=== PATIENT | male | born 1960 | race Caucasian/White ===

== ENCOUNTER 2025-08-26 09:16 | Outpatient (AMB) | payer OTHER, SELFPAY ==
--- NOTE | 2025-08-26 09:19 | MHC.OFFVIS ---
Vital Signs 08/26/25 09:22 Height 5 ft 8 in Weight 195 lb BMI 29.6 BP 171/76 H Blood Pressure Location Lt brachial Position Sitting Respiration 16 Pulse 81 Pulse Source Pulse Oximeter Pulse Oximetry (%) 97 Oxygen Delivery Method Room Air Intake Visit Reasons: Chronic Left Sided Low Back Pain Assistant Financial Accountant Required: No Allergies No Known Allergies Allergy (Verified 08/26/25 09:23) Medication List - Last Reconciled 08/26/25 by ARLETH Myrick-cob-emtri-tenof alafen [phone] mg (Genvoya) 1 tab PO DAILY fenofibrate 160 mg PO DAILY hydrochlorothiazide 12.5 mg PO DAILY ipratropium bromide 2.5 mL inhalation Q6H PRN levothyroxine 25 mcg PO DAILY metformin 500 mg PO DAILY metoprolol succinate ER 50 mg PO DAILY rosuvastatin 10 mg PO DAILY HPI HPI Chronic Left Sided Low Back Pain: Details: History of Present Illness The patient is a 65 year old individual presenting with chronic left lower back pain with a history of previous back surgery. The current episode of pain started suddenly on March 28 while making a bed, and by March 31, the patient was unable to walk. The pain is described as an aching, numbing, and stabbing sensation, rated 7 to 8 out of 10 in intensity, located in the left buttock and hip, starting in the lower back and radiating down the left calf to the bottom of the foot and big toe. The patient sometimes experiences rectal pain as well. For the current symptoms, the patient has been seeing a chiropractor faithfully since March without improvement and notes that massage therapy provides only minimal relief. The patient has been prescribed 5 mg of cyclobenzaprine, which helps with sleep but does not resolve the pain upon waking. The patient's medical history is notable for two prior back surgeries, one in 1988 and another in 2003. A previous MRI, performed sometime between 2006 and 2008, revealed four herniated discs. The patient also has a history of HIV infection, managed with antiretroviral therapy since approximately 2005, and has an undetectable viral load with no problems with wound healing. Pain Description - Onset and Timing: The pain began suddenly on March 28 while making a bed. - Quality and Character: The patient describes the pain as aching, numbing, and stabbing, and sometimes as a rectal pain or a sensation of something being jammed in the buttock. - Location and Radiation: The pain starts in the lower back, moves to the left buttock and hip, and then radiates down the left calf to the bottom of the foot and the big toe. - Severity: The pain intensity is rated as 7 to 8 out of 10. - Exacerbating Factors: Lying on the back or the left side worsens the pain. - Interference with Function: The pain has interfered with the ability to walk and sleep, and would likely prevent full participation in physical therapy. - Relieving Factors: Massage therapy provides a small amount of relief. Physical Exam - Motor: Subjective weakness of the left foot is noted when attempting to stand on toes. - Motor: Performing a single-leg toe stand is much easier on the right than on the left. - Motor: The patient is unable to stand on the left heel due to pain and weakness. - Neurologic: Straight leg raise is positive on the left side. Results - Imaging: The most recent MRI, from approximately 8081-9028, showed four herniated discs. - Labs: HIV viral load is undetectable. Pain Management - Affect: Pain is interfering with sleep. - Analgesia: Current pain level is 7-8/10. - Analgesia: The patient is prescribed cyclobenzaprine 5 mg, which induces sleep but does not provide adequate pain relief upon waking. - Analgesia: Gabapentin was offered as an alternative for nighttime use, and the patient may also take Tylenol. - Adverse Effects: Cyclobenzaprine causes sleepiness, and the patient cannot take medications that cause daytime drowsiness due to the patient's occupation. - Activities of Daily Living: The pain impairs walking and sleep, and is expected to limit participation in physical therapy. - Aberrant Drug Related Behaviors: None discussed. 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 1. Chronic Low Back Pain With Left Sciatica - The patient's presentation of [id number]-[id number] low back pain with radicular symptoms and positive physical exam findings (left-sided weakness, positive straight leg raise) suggests lumbosacral nerve root irritation, especially given the history of multiple herniated discs. - An MRI of the lumbar spine without contrast will be ordered to further investigate the lumbar neuroanatomy. - Gabapentin was offered for nighttime use to manage neuropathic pain and aid with sleep, as an alternative to cyclobenzaprine. - The patient will continue with neonatal critical care nurse and attempt physical therapy as tolerated, though it is noted that pain may limit participation. - Follow-up will be scheduled after the MRI to discuss the results and consider further options, such as injections. 2. Hiv Infection - The patient's HIV is stable and well-controlled with an undetectable viral load on antiretroviral therapy. - No changes to the current management are required. Discussion Notes I discussed with the patient that the current symptoms, including radiating pain and weakness, are concerning for a nerve issue in the lower back, likely related to the known history of herniated discs. I recommended an MRI of the lumbar spine to get a clear picture of the anatomy and guide further treatment. We discussed the possibility that the insurance carrier may require a trial of physical therapy before approving the MRI, but I will note that the patient's current pain level limits the ability to fully participate. Regarding medications, I offered gabapentin as an option for nighttime use to help with nerve pain and sleep, acknowledging the patient's need to avoid sedating medications during the day due to their work. The patient can try gabapentin and decide if it is more helpful than the currently prescribed cyclobenzaprine. I instructed the patient to await a call from the MRI facility to schedule the scan and to then call my office to schedule a follow-up appointment a few days after the MRI date. I advised the patient to contact my office if no call is received from the MRI facility within a couple of weeks, and also mentioned that the patient could proactively contact the insurance company to check on the status of the authorization. Patient Instructions - An MRI of your lower back will be ordered. You will receive a phone call from the imaging facility to schedule your appointment. - If you do not receive a call to schedule your MRI within the next couple of weeks, please call our office. - Once you have a date for your MRI, please call our office to schedule a follow-up visit for a few days after that date so we can review the results together. - You can contact your insurance company (Pricing Assistant) in a few days to ask about the status of the MRI approval to help move the process along. - You can try taking gabapentin at night to help with your pain and sleep. You may choose to take this or your cyclobenzaprine, depending on which one helps you more. - Avoid taking any medications that make you drowsy during the day. - You may take Tylenol for pain if you are able to. Orders: Orders MR lumbar spine wo con Today G89.29 - Other chronic pain, M54.40 - Lumbago with sciatica, unspecified side Medications: New gabapentin 300 mg PO BEDTIME 30 caps 0RF Coding Level of Care Code New Pt Level 4 (47895) Diagnoses Chronic left-sided low back pain with sciatica M54.40; G89.29
[2025-08-26 09:22] VITALS: BP 171/76; PULSE 81; RESP 16; O2SAT 97; BMI 29.6
--- OUTSIDE RECORDS SUMMARY | 2025-08-26 10:57 | XMS_ITS | Encounter Summary ---
Author Organization [facility] Address [address] [place] [address] Care Team Providers Care Yarn Examiner Name Role Phone Owen Velazco MD Primary Care Provider [phone] Encounter Details Date Type Department Care Team ([facility] st Contact Info) Description 07/28/2025 Results Follow-Up Adult [address] [phone] Owen Velazco MD [address] [place] [address] Social History Tobacco Use Types Packs/Day Years Used Date Smoking Tobacco: Former Cigarettes 0 Q uit: 05/27/2010 Smokeless Tobacco: Never Alcohol Use Standard Drinks/Week Comments Yes 0 (1 standard drink = 0.6 oz pur e alcohol) Housing Instability Answer Date Recorde d Are you worried that in the next 2 months you may not have stable housing? No 09/23/2024 Food Access & Nutrition Answer Date Rec orded Do you have access to a vari ety of food including fruits and vegetables? Yes 09/23/2024 Access to Healthcare Answer Date Record ed Within the last 3 months, ho w many times did you visit the emergency department for your medical care? 0 09/23/2024 Health Literacy Answer Date Recorded How often do you need to hav e someone help you when you read instructions, pamphlets, or other written material from your doctor or pharmacy? Never 09/23/2024 Caregiver: How often do you need to have someone help you when you read instructions, pamphlets, or other written material from your doctor or pharmacy? Not on file 09/23/2024 Financial Risk Answer Date Recorded How hard is it for you to pa y for the very basics like food, housing, medical care, and air conditioning / heating? Not very hard 09/23/2024 Transportation Answer Date Recorded Has the lack of transportati on kept you from meetings, work, or from getting things needed for daily living? No Has the lack of transportati on kept you from medical appointments or from getting medications? No 09/23/2024 Social Isolation Answer Date Recorded How often do you feel lonely or isolated from th ose around you? Never 09/23/2024 Food Risk Answer Date Recorded Within the past 12 months we worried whether our food would run out before we got money to buy more. Never true 09/23/2024 Within the past 12 months th e food we bought just didn't last and we didn't have money to get more. Never true 09/23/2024 Dependent Care Answer Date Recorded Do you need help finding or paying for care for your loved ones. For example, teacher early childhood development or elderly care for an older adult? No 09/23/2024 Education Answer Date Recorded Do you think completing more education or training, like finishing a GED, going to college, or learning a trade, would be helpful for you? No 09/23/2024 Employment and Income Answer Date Recor ded During the last four weeks, have you been actively looking for work? No 09/23/2024 Living Situation Answer Date Recorded What is your living situation? Unrecognized valu e 09/23/2024 Sex and Gender Information Value Date Recorded Sex Assigned at Male 06/25/2024 10:18 AM EDT Legal Sex Male 1:37 AM EST Gender Identity Male 06/25/2024 10:18 AM EDT Sexual Orientation Lesbian or Hines 06/25/2024 10 :18 AM EDT documented as of this encounter Plan of Treatment Upcoming Encounters Date Type Department Care Team ([facility] st Contact Info) Description 08/29/2025 2:30 PM EST Evaluation Outpatient [address] [address] Matheus Franco, PT 09/30/2025 2:45 PM EST Office Visit Adult Medicine [facility] [address] [place] [address] Sonia Dumont PA [address] [place], [place] documented as of this encounter Visit Diagnoses Not on filedocumented in this encounter Additional Health Concerns Assessment Noted Time PHQ-9 Depression Total Score: 0 11/06/19 25 10:56 AM EST documented as of this encounter Care Teams Yarn Examiner Relationship Specialty Start Date End Date Owen Velazco MD [address] [place] [address] PCP - General Internal Medicine 05/03/22 documented as of this encounter
--- OUTSIDE RECORDS SUMMARY | 2025-08-26 10:57 | XMS_ITS | Encounter Summary ---
Author Organization [facility] Address [address] [place] [address] Care Team Providers Care Cloth Printing Inspector Name Role Phone Owen Velazco MD Primary Care Provider [phone]- [phone] Reason for Visit * Reason Onset Date Comments Back Pain 07/24/2025 Hip Pain 07/24/2025 Encounter Details Date Type Department Care Team ([facility] st Contact Info) Description 07/24/2025 Telephone Adult Medicine [address] [phone] Owen Velazco MD [address] [place] [address] Social History Tobacco Use Types Packs/Day Years [...] do you feel lonely or isolated from ose around you? Never 09/23/2024 Food Risk [...] care for your loved ones. For example, children teacher or elderly care for an older adult? [...] AM EDT documented as of this encounter Progress Notes * Muna Silver RN - 07/24/2025 3:35 PM EDT Pt. States he has already spoke to someone and has an apt. On Tuesday. He explains he has a hx of back pain and surgeries. In March he did something and has been having problems with since March. He has ton seeing his chiropractor x 4 months and they both decided it is time to talk to his PCP . The pain is left lower back, left hip , left buttock and can radiate down leg to foot. He denies numbness but sts at times his leg does feel weak. He denies need for ER visit at this time and is ok with his apt. On Tuesday. I advised to call the office prior to apt. With any concerns or questions and if worsening symptoms or weakness to be evaluated in the ER. Pt. Verbalized understanding * Jessica Mari - 07/24/2025 3:09 PM EDT Patient call requires triage: Symptoms patient is presenting: lower back pain, left side, hip pain, buttock pain to foot. Sees Chiro. Chiro said to call PCP. Numbness in leg. Pain in buttock, in anal area at times, very painful. Had surgery in 2003, Dr. Desai. Patient would like to get an MRI. He will be available after 4:15 today or in the morning. How long has patient had these symptoms?: March 28, per patient For ALL patients calling to schedule any appointment (routine, sick visit, follow up, consult, etc.) in the outpatient setting please ask the following questions: Do you have fever of higher than 101, sore throat with difficulty swallowing or severe shortness ofbreath? no If YES to any of these above symptoms, send a message to triage and do not book. Red dot. If no, an audio or video visit should be booked. Have you had close contact with someone with Coronavirus in the last 14 days? no Have you traveled abroad? no Have you traveled recently to another state outside of [place], [place], [place], [place], [place], [place], [place]? no o If yes, did you quarantine for 14 days or have a negative covid test? no If yes to any of the above, patient is not to be scheduled in office until after 14 day quarantine or negative covid test. If pain or injury related was it due to an accident at work or from a motor vehicle accident? If yes, date of accident/Injury: No If yes, gather 3rd constitution party insurance information Third [employer] Party Information: not applicable PCP: Owen Velazco MD Payor: [facility] / Plan: [employer] / Product Type: *No Product type* / documented in this encounter Plan of Treatment Upcoming Encounters Date Type Department Care Team (Late st Contact Info) Description 08/29/2025 2:30 PM EST Evaluation Outpatient Rehabilitation - [address] [phone] Matheus Franco PT 09/30/2025 2:45 PM EST Office Visit Adult Medicine [address] [phone] Sonia Dumont PA [address] [place] [address] documented as of this encounter Visit Diagnoses Not on filedocumented in this encounter Additional Health Concerns Assessment Noted Time PHQ-9 Depression Total Score: 0 11/06/19 25 10:56 AM EST documented as of this encounter Care Teams Cloth Printing Inspector Relationship Specialty Start Date End Date Owen Velazco MD [address] [place] [address] PCP - General Internal Medicine 05/03/22 documented as of this encounter
--- OUTSIDE RECORDS SUMMARY | 2025-08-26 10:57 | XMS_ITS | Clinical Summary ---
Author Organization [facility] [address] [place] [address] [address] [place] [address] Phone Care Team Providers Care Cnc Cutting Operator Name Role Phone Owen Velazco MD Primary Care Provider [phone] Allergies Active Allergy Reactions Criticality Noted Date Comments Lactose 08/07/2018 intolerant Medications elvitegravir-co bicistat-emtric itabine-tenofov ir alafenamide (Genvoya) [phone] mg per tablet Take by mouth. A ctive rosuvastatin calcium (ROSUVASTATIN ORAL) Take 10 mg by mouth 1 (one) time each day. Active hydroCHLOROthia zide (HYDRODIURIL) 25 mg tablet Take 1 tablet (25 mg total) by mouth 1 (one) time each day. 90 each 3 10/11/19 25 026 Active metFORMIN XR (GLUCOPHAGE-XR) 500 mg 24 hr tablet Take 1 tablet (500 mg total) by mouth 1 (one) time each day with breakfast. Do not crush, chew, or split. 90 each 2 02/08/20 25 026 Active fenofibrate (LOFIBRA) 160 mg tablet TAKE 1 TABLET BY MOUTH EVERY DAY 90 tablet 06/18/20 25 Active ipratropium (ATROVENT) 21 mcg (0.03 %) nasal spray Administer 2 sprays into each nostril 1 (one) time each day. 30 mL 2 07/26/20 25 Active levothyroxine (SYNTHROID, LEVOTHROID) 50 mcg tablet Take 1 tablet (50 mcg total) by mouth 1 (one) time each day. 90 each 1 07/26/20 25 026 Active cyclobenzaprine (FLEXERIL) 5 mg tablet Take 1 tablet (5 mg total) by mouth at bedtime as needed for muscle spasms. 30 tablet 1 07/26/20 25 Active metoprolol succinate (TOPROL-XL) 50 mg 24 hr tablet Take 1 tablet (50 mg total) by mouth 1 (one) time each day. 90 tablet 1 08/21/20 25 Active metoprolol succinate (TOPROL-XL) 50 mg 24 hr tablet TAKE 1 TABLET BY MOUTH EVERY DAY 90 tablet 05/13/20 25 025 Discontinu ed(Reorder ) predniSONE (DELTASONE) 20 mg tablet Take 2 tablets (40 mg total) by mouth See administration instructions for 3 days, THEN 1 tablet (20 mg total) See administration instructions for 4 days. 10 tablet 07/26/20 25 025 Active Problems Problem Noted Date Diagnosed Date Spondylosis of cervical dimple on without myelopathy or radiculopathy 11/21/2023 COVID-19 10/09/2021 Vitamin D deficiency 07/07/2021 Prediabetes 04/06/2021 Overview (08/14/2024): HBA1C 6.1 Assessment & Plan (11/13/2024 10:23 AM EST): All the patient has a history of prediabetes, his most recent hemoglobin A1c came back at 6.6%. This now meets criteria for type 2 diabetes. Discussed this with patient in detail. Discussed potential option to add metformin. Patient prefers to avoid any further medication at this time, and I explained to him that he will need to make very significant changes to his diet and exercise routine which she will work towards. If there is any persistent elevations, discussed with patient that we would consider initiating metformin. He is on rosuvastatin. He was previously on WILBUR inhibitor which he did not tolerate. Orders: Basic metabolic panel; Future Hemoglobin A1c; Future Thyroid stimulating hormone; Future Diverticulosis 04/06/2021 Overview (08/14/2024): CN 09/05/17 Varicose veins of lower extremity 08/07/2018 Mixed hyperlipidemia 08/07/2018 Human immunodeficiency virus (HIV) disease (CMS/HCC V24, CMS/HCC V28) 08/07/2018 HTN (hypertension) 08/07/2018 Assessment & Plan (10/12/2024 8:24 AM EST): His blood pressure has been uncontrolled. Previously, he was on HCTZ which was discontinued due to a single episode of hypercalcemia at 10.6. Pt felt HCTZ worked better for him than lisinopril. He has not had very good control since the switch. I talked about adding amlodipine. Pt prefers to restart HCTZ. We will stop the lisinopril. Follow up in 4 weeks with labs at that time. If still uncontrolled, next visit will add amlodipine. He is asked to monitor BP daily and message me with persistent elevations. Orders: Basic metabolic panel; Future Basic metabolic panel; Future Thyroid stimulating hormone; Future Thyroid stimulating hormone; Future Hemoglobin A1c; Future Hearing loss, right 08/07/2018 Childhood asthma 08/07/2018 Encounters Date Type Department Care Team Description 07/28/2025 Results Follow-Up Adult [address] [phone] Owen Velazco MD 07/26/2025 3:08 PM EDT - 07/26/2025 11:59 PM EDT Hospital Encounter SOLA Delgado [facility] [address] [place] [phone] Chronic left-sided low back pain with left-sided sciatica Discharge Disposition: Home or Self Care 07/26/2025 3:08 PM EDT - 07/26/2025 11:59 PM EDT Hospital Encounter LETARACHELE Delgado Eddy [address] [place] [phone] Primary osteoarthritis of left hip Discharge Disposition: Home or Self Care 07/26/2025 3:00 PM EDT Office Visit Adult [address] [phone] Owen Velazco MD Chronic left-sided low back pain with left-sided sciatica (Primary Dx); Primary osteoarthritis of left hip; Primary hypertension; Type 2 diabetes mellitus without complication, without long-term current use of insulin ([facility] [place], [facility] V28); Mixed hyperlipidemia; Chronic kidney disease (CKD), stage 2; Acquired hypothyroidism; Asymptomatic HIV infection, with no history of HIV-related illness ([facility] V24, [facility] V28) 07/24/2025 Telephone Adult Medicine [address] [phone] Owen Velazco MD from Last 3 Months Immunizations Immunization Administration Dates Next Due Hep A, Unspecified 10/10/2013 Hep B, Unspecified 10/10/2013 Hepatitis A-Hepatitis B Adul t (Twinrix) 18yo and older 04/04/2013,11/14/2012,08/29/2012 Influenza Quadravalent, MDCK , 0.5ml, preservative free (Flucelvax) 6mo and older 09/06/2022,06/17/2021 Influenza trivalent, 0.5mL, preservative free (Fluarix; FluLaval; Fluzone) ages 6mo and older (Afluria) 3 years and older 12/14/2017 Influenza trivalent, with pr eservative (Fluzone; Afluria) 6mo and older 07/04/2019 Pneumococcal conjugate 13 va lent (Prevnar 13, PCV13) 2mo and older 08/29/2012 Tb Skin Test 10/10/2013 Tdap Tetanus diptheria acell ular pertussis (Boostrix; Adacel) 7yo and older 02/09/2018,09/26/2010 Surgical History Surgery Date Site/Laterality Comments OTHER SURGICAL HISTORY Right PROCEDURE: HISTORICAL MASTOIDECTOMY BACK SURGERY PROCEDURE: HISTORICAL BACK SURGERY OTHER SURGICAL HISTORY PROCEDURE: SKIN EXCISION; COMMENT: resection forehead and scalp lesions COLONOSCOPY 09/05/2017 PROCEDURE: HISTORICAL COLONOSCOPY; COMMENT: one polyp in sigmoid colon, diverticulosis, internal hemorrhoids, repeat 5 years COLONOSCOPY 05/02/2012 PROCEDURE: HISTORICAL COLONOSCOPY; COMMENT: cecal polyp repeat 5 years Medical History Medical History Date Comments Human immunodeficiency virus (HIV) disease ([facility] [place], [facility] V28) 08/07/2018 DX:Human immunodefi ciency virus (HIV) disease ([facility]) Hyperlipidemia 08/07/2018 DX:Hyperlipidemi a HTN (hypertension) 08/07/2018 DX:HTN (hyper tension) CKD (chronic kidney disease) stage 3, GFR 30-59 ml/min ([facility] V24, [facility] V28) 08/07/2018 DX:CKD (chronic kidney disea se) stage 3, GFR 30-59 ml/min ([facility]) Hearing loss, right 08/07/2018 DX:Hearing l oss, right History of herpes zoster 08/07/2018 DX:Hist ory of herpes zoster; COMMENT: Right arm Childhood asthma 08/07/2018 DX:Childhood as thma Varicose veins of lower extremity 08/07/2018 DX:Varicose veins of lower extremity History of colon polyps 04/06/2021 DX:Histo ry of colon polyps; COMMENT: CN 09/05/17 Prediabetes 04/06/2021 DX:Prediabetes; COMMENT: HBA1C 6.1 Diverticulosis 04/06/2021 DX:Diverticulosi s; COMMENT: CN 09/05/17 Family History Medical History Relation Name Comments Diabetes Brother Hypertension Father Stomach cancer Maternal Grandmother Diabetes Paternal Grandfather Diabetes Sister Relation Name Status Comments Brother Father Maternal Grandmother Mother Paternal Grandfather Sister Social History Tobacco Use Types Packs/Day Years [...] Record ed Within the last 3 months, marley w many times did you visit the [...] care for your loved ones. For example, children's institution attendant or elderly care for an older adult? [...] or Hines 06/25/2024 10 :18 AM EDT Obstetrics History Last Filed Vital Signs Vital Sign Reading Time Taken Comments Blood Pressure 138/84 07/26/2025 3:00 PM EDT Pulse 63 07/26/2025 2:35 PM EDT Temperature 36.2 C (97.2 F) 07/26/2025 2:35 PM EDT Respiratory Rate 16 02/07/2025 8:31 AM EDT Oxygen Saturation 100% 11/13/2024 8:29 AM EST Inhaled Oxygen Concentration - - Weight 88.9 kg (196 lb) 07/26/2025 2:35 PM EDT Height 172.7 cm (5' 8 ) 07/26/2025 2:35 PM EDT Body Mass Index 29.8 07/26/2025 2:35 PM EDT Plan of Treatment Upcoming Encounters Date Type Department Care Team (Late st Contact Info) Description 08/29/2025 2:30 PM EST Evaluation Outpatient Rehabilitation - [address] [phone] Matheus Franco, PT 09/30/2025 2:45 PM EST Office Visit Adult Medicine [place] - [address] [phone] Sonia Dumont PA [address] [place] [address] Health Maintenance Due Date Last Done Comments Meningococcal ACWY Vaccine (1 - Risk 2-dose series) 01/07/1964 Diabetes: Annual Foot Exam 01/07/1972 Diabetes: Annual Retina Eye Exam 01/07/1972 MMR Vaccines (1 of 2 - Risk 2-dose series) 01/07/1980 RSV Immunization Adult Patients (1 - Risk 50-74 years 1-dose series) 01/07/2012 Colorectal Cancer Screening: Colonoscopy 09/05/2022 09/05/2017 COVID-19 Vaccine ( season) 2025 06/18/2022, 08/06/2021, 12/27/2020, Additional history exists Influenza Vaccine (#1) 2025 , 09/06/2022, 06/17/2021, Additional history exists Diabetes: Annual Urine Albumin-Creatinine Ratio (uACR) 07/26/2025 10/17/2021 Diabetes: Blood Sugar Control Test (HGBA1C) 08/03/2025 01/31/2025, 11/09/2024, 11/21/2023 Social Influencers of Health Screening 09/23/2025 09/23/2024 Diabetes: Annual GFR (Glomerular Filtration Rate) 01/31/2026 01/31/2025, 11/09/2024, 03/27/2024, Additional history exists Hypertension/CHF/CAD Annual BMP Blood Test 01/31/2026 01/31/2025, 11/09/2024, 03/27/2024, Additional history exists DTaP,Tdap,and Td Vaccines (3 - Td or Tdap) 02/10/2028 02/09/2018, 09/26/2010 Cholesterol Screening (Lipid Panel) 11/21/2028 11/21/2023 Hepatitis A Vaccines Completed 10/10/2013, 04/04/2013, 11/14/2012, Additional history exists Hepatitis B Vaccines Completed 10/10/2013, 04/04/2013, 11/14/2012, Additional history exists Hepatitis C Screening Completed 10/20/2021 Pneumococcal Vaccine: 50+ Years Completed 10/28/2022, 08/29/2012 Depression Screening Completed 11/06/2024 Zoster Vaccines Completed 06/06/2025, 10/03/2024 HIB Vaccines Aged Out No longer eligi ble based on patient's age to complete this topic HPV Vaccines Aged Out No longer eligi ble based on patient's age to complete this topic IPV Vaccines Aged Out No longer eligi ble based on patient's age to complete this topic Meningococcal B Vaccine Aged Out No l onger eligible based on patient's age to complete this topic RSV Immunization Patients Under 20 months Aged Out No longer eligible based on patient's age to complete this topic Varicella Vaccines Aged Out No longer eligible based on patient's age to complete this topic Procedures Procedure Name Priority Date/Time Associated Diagnosis Comments XR LUMBAR SPINE 4+ VIEWS Routine 07/26/2025 3:31 PM EDT Chronic left-sided low back pain with left-sided sciatica XR HIP 2-3 VIEWS LEFT Routine 07/26/2025 3:30 PM EDT Primary osteoarthritis of left hip BASIC METABOLIC PANEL Routine 01/31/2025 8:54 AM EDT Scrotal abscess Prediabetes HEMOGLOBIN A1C Routine 01/31/2025 8:54 AM EDT Scrotal abscess Prediabetes LIPID PANEL Routine 11/21/2023 HEPATITIS C SCREENING Routine 10/20/2021 URINE ALBUMIN CREATININE RATIO Routine 10/17/2021 COLONOSCOPY Routine 09/05/2017 from Last 3 Months or Most Recently Relevant to Health Maintenance Results * XR Lumbar Spine 4+ Views (07/26/2025 3:31 PM EDT) Anatomical Region Laterality Modality Spine, L-spine Radiographic Ramial ging 07/27/2025 9:53 AM EDT Impressions 07/27/2025 9:57 AM EDT Mild scoliosis with diffuse degenerative changes. Grade 1 spondylolisthesis at L4-5. -------- FINAL REPORT -------- Dictated By: Ashley Escobedo Dictated Date: 07/27/2025 09:53 ET Assigned Physician: Ashley Escobedo Reviewed and Electronically Signed By: Ashley Escobedo Signed Date: 07/27/2025 09:57 ET Workstation ID: [id number] Transcribed By: Self Edit Transcribed Date: 07/27/2025 09:53 ET Narrative 07/27/2025 9:57 AM EDT EXAM: Lumbar spine x-ray HISTORY: Chronic left low back pain with left sciatica. COMPARISON: None FINDINGS: 5 views of the lumbar spine were performed. 5 lumbar type vertebral bodies. Vertebral body heights are maintained. Mild dextroscoliosis. Diffuse mild/moderate disc space narrowing. Multilevel endplate spurring. No definite spondylolysis. Multilevel facet arthropathy, greatest at L4-5. Grade 1 anterolisthesis of L4 on L5. Procedure Note Ashley Escobedo MD - 07/27/2025 EXAM: Lumbar spine x-ray HISTORY: Chronic left low back pain with left sciatica. COMPARISON: None FINDINGS: 5 views of the lumbar spine were performed. 5 lumbar type vertebral bodies. Vertebral body heights are maintained.Mild dextroscoliosis. Diffuse mild/moderate disc space narrowing.Multilevel endplate spurring. No definite spondylolysis. Multilevel facetarthropathy, greatest at L4-5. Grade 1 anterolisthesis of L4 on L5. IMPRESSION: Mild scoliosis with diffuse degenerative changes. Grade 1spondylolisthesis at L4-5. -------- FINAL REPORT -------- Dictated By: Ashley Escobedo Dictated Date: 07/27/2025 09:53 ET Assigned Physician: Ashley Escobedo Reviewed and Electronically Signed By: Ashley Escobedo Signed Date: 07/27/2025 09:57 ET Workstation ID: [id number] Transcribed By: Self Edit Transcribed Date: 07/27/2025 09:53 ET us Owen Velazco MD IMG XR PROCEDURES Final Res ult * XR Hip 2-3 Views Left (07/26/2025 3:30 PM EDT) Anatomical Region Laterality Modality Lower Extremities, Hip Left Radiograp hic Imaging 07/27/2025 9:58 AM EDT Impressions 07/27/2025 10:00 AM EDT Mild degenerative changes involving the left hip. -------- FINAL REPORT -------- Dictated By: Ashley Escobedo Dictated Date: 07/27/2025 09:58 ET Assigned Physician: Ashley Escobedo Reviewed and Electronically Signed By: Ashley Escobedo Signed Date: 07/27/2025 10:00 ET Workstation ID: [id number] Transcribed By: Self Edit Transcribed Date: 07/27/2025 09:58 ET Narrative 07/27/2025 10:00 AM EDT EXAM: Pelvic and left hip x-ray. HISTORY: Left hip pain. COMPARISON: None VIEWS: AP view of the pelvis and AP and frog-lateral views of the left hip performed. FINDINGS: Mild medial left hip joint space narrowing. No evidence of an acute fracture or dislocation. Pelvic ring is intact. No destructive bone lesion. Degenerative changes in the imaged lumbar spine. Procedure Note Ashley Escobedo MD - 07/27/2025 EXAM: Pelvic and left hip x-ray. HISTORY: Left hip pain. COMPARISON: None VIEWS: AP view of the pelvis and AP and frog-lateral views of the left hipperformed. FINDINGS: Mild medial left hip joint space narrowing. No evidence of an acutefracture or dislocation. Pelvic ring is intact. No destructive bonelesion. Degenerative changes in the imaged lumbar spine. IMPRESSION: Mild degenerative changes involving the left hip. -------- FINAL REPORT -------- Dictated By: Ashley Escobedo Dictated Date: 07/27/2025 09:58 ET Assigned Physician: Ashley Escobedo Reviewed and Electronically Signed By: Ashley Escobedo Signed Date: 07/27/2025 10:00 ET Workstation ID: [id number] Transcribed By: Self Edit Transcribed Date: 07/27/2025 09:58 ET Owen Velazco MD IMG XR PROCEDURES Final Res ult * (ABNORMAL) Hemoglobin A1c (01/31/2025 8:54 AM EDT) Pathologist [facility] Hemoglobin A1C 6.8(H) <6.5 % LAB CHEMISTRY METHOD 01/31/2025 1:53 PM EDT [facility] Mean Bld Glu Estim. 148 mg/dL LAB CHEMISTRY METHOD 01/31/2025 1:53 PM EDT [facility] Blood Venous blood specimen / Unknown Venipuncture / Unknown 01/31/2025 8:54 AM EDT 01/31/2025 8:54 AM EDT us Augusto COWAN LAB BLOOD ORDERABLES Fin al Result [facility] [address] [place] [address], * (ABNORMAL) Basic metabolic panel (01/31/2025 8:54 AM EDT) Pathologist [facility] Sodium 137 133 - 145 mmol/L LAB CHEMISTRY METHOD 01/31/2025 12:34 PM EDT [facility] Potassium 3.6 3.5 - 5.5 mmol/L LAB CHEMISTRY METHOD 01/31/2025 12:34 PM [facility] Chloride 103 96 - 110 mmol/L LAB CHEMISTRY METHOD 01/31/2025 12:34 PM [facility] CO2 26 21 - 32 mmol/L LAB CHEMISTRY METHOD 01/31/2025 12:34 PM [facility] Anion Gap 8 3 - 11 LAB CHEMISTRY METHOD 01/31/2025 12:34 PM [facility] Glucose 158(H) 70 - 100 mg/dL LAB CHEMISTRY METHOD 01/31/2025 12:34 PM [facility] BUN 22 5 - 25 mg/dL LAB CHEMISTRY METHOD 01/31/2025 12:34 PM [facility] Creatinine 1.03 0.70 - 1.30 mg/dL LAB CHEMISTRY METHOD 01/31/2025 12:34 PM [facility] eGFR 82 >=60 mL/min/1. 73m2 LAB CHEMISTRY METHOD 01/31/2025 12:34 PM [facility] Comment:Calculation based on the Chronic Kidney Disease Epidemiology Collaboration (CKD-EPI) equation refit without adjustment for race. BUN/Creatinine Ratio 21.4 LAB CHEMISTRY METHOD 01/31/2025 12:34 PM [facility] Calcium 9.3 8.5 - 10.5 mg/dL LAB CHEMISTRY METHOD 01/31/2025 12:34 PM [facility] Blood Venous blood specimen / Unknown Venipuncture / Unknown 01/31/2025 8:54 AM EDT 01/31/2025 8:54 AM EDT us Augusto COWAN LAB BLOOD ORDERABLES Fin al Result [facility] [address] [place] [address], * (ABNORMAL) Lipid panel (11/21/2023) [facility] LDL/HDL Ratio 4 0 - 4 Triglycerides 357(A) 0 - 150 mg/dL Cholesterol 131 0 - 200 mg/dL HDL 38(A) >=40 mg/dL LDL Cholesterol 22 0 - 100 mg/dL Blood Venous blood specimen / Unknown Result [facility] Provider LAB BLOOD ORDERABLES Roxanna l Result * Hepatitis C Screening (10/20/2021) [facility] Hepatitis C Screening abstracted [facility] Provider HEALTH MAINTENANCE Final Result * Urine Albumin Creatinine Ratio (10/17/2021) [facility] Urine Albumin Creatinine Ratio abstracted [facility] Provider HEALTH MAINTENANCE Final Result * Colonoscopy (09/05/2017) [facility] Colonoscopy No interpretation , abstracted Anatomical Region Laterality Modality Other [facility] Provider HEALTH MAINTENANCE Final Result from Last 3 Months or Most Recently Relevant to Health Maintenance Insurance [facility] [place] [id number] Care Teams Cnc Cutting Operator Relationship Specialty Start Date End Date Owen Velazco MD [address] [place] [address] PCP - General Internal Medicine 05/03/22
== END 2025-08-26 09:47 | disposition home or self-care (01) ==
LOC: HO.PMC 09:17
PROVIDERS: PCP Internal Medicine; Referring Provider Internal Medicine; Visit Provider Internal Medicine
DX: M54.40 Lumbago with sciatica, unspecified side (principal); G89.29 Other chronic pain
CPT/HCPCS: 99204